=== PATIENT | female | born 1985 | race Caucasian/White ===

== ENCOUNTER 2018-01-16 08:08 | Emergency (ER) | payer OTHER ==
[2018-01-16] MEDS: ACETAMINOPHEN 325 MG TAB PO (08:36)
[2018-01-16] MEDS: IBUPROFEN 600 MG TAB PO (08:36)
== END 2018-01-16 09:55 | disposition home or self-care (01) ==
LOC: FTE 08:08
DX: S20.219A Contusion of unspecified front wall of thorax, initial encounter (principal); S29.019A Strain of muscle and tendon of unspecified wall of thorax, initial encounter; S13.4XXA Sprain of ligaments of cervical spine, initial encounter; V49.40XA Driver injured in collision with unspecified motor vehicles in traffic accident, initial encounter
CPT/HCPCS: 71045; 72040; 72072; 73030; 81025; 99284-25

== ENCOUNTER 2018-05-30 21:32 | Emergency (ER) | payer OTHER | END 2018-05-30 22:26 | disposition home or self-care (01) | LOC: FTE 21:32 | DX: S61.230A Puncture wound without foreign body of right index finger without damage to nail, initial encounter (principal); W54.0XXA Bitten by dog, initial encounter; Y92.9 Unspecified place or not applicable | CPT/HCPCS: 99283; Z7502 ==